=== PATIENT | female | born 1955 | race African-American/Black ===

== ENCOUNTER 2019-05-15 15:32 | Emergency (ER) | payer MEDICAID ==
[~2019-05-15] VITALS: Ht 154.9 cm; Wt 76.7 kg
[2019-05-15 16:15] VITALS: BP 136/82
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
[2019-05-15] MEDS ORDERED: IBUPROFEN600 MG ORAL (17:23)
[2019-05-15] MEDS ORDERED: LIDODERM700 M1 TOPIC (17:23)
[2019-05-15] MEDS ORDERED: ROBAXIN-500MG ORAL (17:23)
[2019-05-15 17:55] VITALS: BP 141/79
--- NOTE | 2019-05-15 17:55 | NUR ---
ER DISCHARGE NOTE: Patient is cleared to be discharged per ERMD, pt is aox4, on room air, with stable vital signs. pt was given dc and prescription instructions, pt was able to verbalize understanding, pt id band removed. pt is able to ambulate with steady gait. pt took all belongings.
[2019-05-15 17:59] VITALS: BP 141/78
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
== END 2019-05-15 17:55 | disposition home or self-care (01) ==
LOC: EMR 16:00
DX: S43.401A Unspecified sprain of right shoulder joint, initial encounter (principal); S63.601A Unspecified sprain of right thumb, initial encounter; Z88.1 Allergy status to other antibiotic agents; Z88.2 Allergy status to sulfonamides; V43.52XA Car driver injured in collision with other type car in traffic accident, initial encounter; Y92.410 Unspecified street and highway as the place of occurrence of the external cause
CPT/HCPCS: 73030; 73130; Z7502; 99284